=== PATIENT | female | born 1935 | race Caucasian/White ===

== ENCOUNTER 2024-04-30 06:10 | Day surgery (SDC) | payer MEDICARE, OTHER ==
[2024-04-30] MEDS ORDERED: Lactated Ringers 1,000 ML IV ONE (06:23)
[2024-04-30] MEDS: Lactated Ringers 1,000 ML IV SCH (06:31)
[2024-04-30 06:32] VITALS: RESP 18; O2SAT 96
[2024-04-30] MEDS ORDERED: Marcaine Mpf 0.5% Vial 30 Ml ONE (06:41)
[2024-04-30] MEDS ORDERED: XYLOCAINE 1% HCL 20 ML MDV ONE (06:41)
[2024-04-30] MEDS: CEFAZOLIN 2 GM/100 ML NaCl 2 GM/100 ML IVPB IV SCH (06:44)
[2024-04-30 06:47] LABS: Hematocrit 37.4 % (34.1-44.9); Hemoglobin 12.1 g/dL (11.2-15.7); Mean Cell Volume 91.2 fL (79.4-94.8); Mean Corpuscular Hemoglobin 29.5 pg (25.6-32.2); Mean Corpuscular Hgb Concent. 32.4 g/dL (32.2-35.5); Mean Platelet Volume 10.3 fL (9.4-12.3); Platelet Count 254 x10^3/uL (182-369); White Blood Count 5.1 x10^3/uL (3.98-10.04)
[2024-04-30] MEDS ORDERED: SUBLIMAZE 100 MCG/2 ML ONE (07:07)
[2024-04-30] MEDS ORDERED: Versed 2 MG/2 ML Injection ONE (07:07)
[2024-04-30] MEDS ORDERED: DIPRIVAN 200 MG/20 ML IV ONE (07:07)
[2024-04-30 07:22] LABS: ALBUMIN 4.2 g/dL (3.5-5.0); ANION GAP 13.3 MEQ/L (5-15); BILIRUBIN,TOTAL 0.8 mg/dL (0.2-1.3); Calcium 9.5 mg/dL (8.4-10.2); Creatinine 1 0.56 mg/dL (0.52-1.04); EST GLOMERULAR FILTRATION RATE 87.2 ML/MIN; Potassium 3.7 mmol/L (3.5-5.1); Total Protein 7.5 g/dL (6.3-8.2)
[2024-04-30] MEDS ORDERED: Xylocaine-Mpf 2% 5 Ml Vial ONE (07:33)
[2024-04-30 08:43] VITALS: TEMP 97.4
[2024-04-30 09:03] VITALS: BP 121/81; PULSE 56
--- NOTE | 2024-05-01 15:28 | OP ---
SURGERY DATE/TIME: 04/30/2024 [id number] PREOPERATIVE DIAGNOSES: 1) Soft tissue mass, right foot. 2) Right foot pain. POSTOPERATIVE DIAGNOSES: 1) Soft tissue mass, right foot. 2) Right foot pain. PROCEDURES: Excision of soft tissue mass, right 5th digit. SURGEON: Chidi Argueta DPM FOR[employer]IC SOCIAL WORKER: None. ANESTHESIA: Monitored anesthesia care. HEMOSTASIS: Pressure dressing. ESTIMATED BLOOD LOSS: Approximately 2 mL. MATERIALS: A 4-0 Monocryl and 4-0 nylon. INJECTABLES: 10 mL of 1:1 mixture of 1% lidocaine plain and 0.5% bupivacaine plain injected in a mini-Ascencio block-type fashion. INDICATIONS FOR PROCEDURE: The patient is a very pleasant 89-year-old female, well-known to my service for a soft tissue mass that started within the last 6 months to the right fifth digit. As a result, the patient has had some limitations in shoe gear. She has tried conservative modalities with padding; however, this causes her more pain. She is curious about what the etiology of this lesion is. From that standpoint, she opted to proceed with the removal of soft tissue mass. X-rays demonstrate that this is not osseous in origin and likely soft tissue related. MRI demonstrates a small soft tissue mass over the dorsal aspect of the foot that is not fluid filled. 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 Patient understands all risks, complications, and benefits of surgical intervention at this time including but not limited to infection, hematoma, seroma, possibility of delayed wound healing, non-wound healing, possibility of failure of surgical intervention, possible need for further surgical intervention at a later date. No guarantees were provided as to the outcome of surgical intervention; however, the goal is to reduce pain and improve function. From that standpoint, we decided to proceed. DESCRIPTION OF PROCEDURE AND FINDINGS: The patient was brought to the operating room and placed on the operating room table in the supine position. At this time, monitored anesthesia care was administered until the patient was adequately sedated. At this time, the right lower extremity was prepped and draped in the typical sterile fashion and lowered onto the surgical field. At this time, a 10 mL block of a 1:1 mixture of 1% lidocaine plain and 0.5% bupivacaine plain was injected in a mini Ascencio block-type fashion. Following this, a curvilinear incision was made over the lesion, carrying the incision down to the level of the subcutaneous tissue. 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 Pathological assessment will assist and the lesion was removed in total and sent for pathological assessment for permanent. From that standpoint, copious amounts of sterile saline were utilized to flush the surgical site. Any dog ears were then removed utilizing a 15 blade and the wound was coapted, utilizing a 4-0 Monocryl with simple buried-type fashion; 4-0 Monocryl for subcutaneous closure and then, 4-0 nylon in a horizontal mattress-type fashion for skin closure. A dressing consisting of Betadine, Luda, Adaptic, and Coban was utilized to secure the toe. Patient was then reversed from anesthesia and returned to postoperative anesthesia care unit with vital signs table and vascular status intact. Patient handled the anesthesia as well as the procedure without significant complications. Postoperative orders as indicated in the patient's discharge chart.
== END 2024-04-30 09:07 | disposition home or self-care (01) ==
LOC: SDC 06:10
PROVIDERS: ATTEND Podiatrist Foot & Ankle Surgery
DX: R22.41 Localized swelling, mass and lump, right lower limb (principal); M79.671 Pain in right foot; M1A.0711 Idiopathic chronic gout, right ankle and foot, with tophus (tophi)
CPT/HCPCS: 28039; 36415; 80053; 85027; 93005; 99100; J0690; J2250; J2704; J3010